=== PATIENT | female | born 1960 | race African-American/Black ===

== ENCOUNTER 2016-10-07 00:47 | Emergency (ER) | payer BC ==
[2016-10-07] MEDS ORDERED: Sodium Chloride 0.9% 1,000 ML ONE (01:18)
[2016-10-07 01:33] LABS: #Basophils 0.1 thou/uL (0.0-0.2); #Eosinphils 0.1 thou/uL (0.0-0.7); #Lymphocytes 2.8 thou/uL (1.20-3.40); #Monocytes 0.4 thou/uL (0.11-0.59); #Neutrophils 3.5 thou/uL (1.40-6.50); %Basophils 1.4 % (0.0-1.0); %Lymphocytes 40.4 % (21.0-51.0); %Monocytes 5.4 % (0.0-10.0); Mean Platelet Volume 9.3 fL (7.4-10.4); Microcytosis MODERATE=15-30 cells (100X) (0-5/hpf); Ovalocytes SLIGHT = 2-5 cells (100X) (0-1/hpf); Red Blood Cell (RBC) Count 4.69 mill/uL (4.20-5.40); Target Cells SLIGHT = 2-5 cells (100X) (0-1/hpf); Tear Drops SLIGHT = 2-5 cells (100X) (0-1/hpf); White Blood Cell (WBC) Count 6.9 thou/uL (4.8-10.8)
[2016-10-07 01:39] LABS: ALT (SGPT) 11 U/L (0-55); AST (SGOT) 18 U/L (5-34); Alkaline Phosphatase 69 U/L (40-150); Anion Gap 17 mmol/L (10-20); BUN (Urea Nitrogen) 10 mg/dL (9.8-20.1); Bilirubin, Total 0.3 mg/dL (0.2-1.2); CK (CPK) 207 U/L (29-168); Calc. Creatinine Clearance 0 mL/min (70-130); Carbon Dioxide 22 mmol/L (22-29); Chloride 96 mmol/L (98-107); Estimated GFR-MDRD 78; Globulin 3.5 g/dL (2.4-3.5); Lipase 24 U/L (8-78); Protein, Total 7.7 g/dL (6.0-8.3)
[2016-10-07 01:42] LABS: Acetaminophen Less than 3.0 mcg/mL (10.0-30.0); Salicylate Less than 5.0 mg/dL (15.0-30.0)
[2016-10-07 01:45] LABS: Troponin I Less than 0.010 ng/mL (< 0.028)
[2016-10-07] MEDS ORDERED: Potassium Chloride 20 MEQ TAB ONE (01:59)
[2016-10-07 02:24] LABS: Bilirubin Negative (Negative); Blood, Urine Trace (Negative); Glucose, Urine (Dipstick) Negative (Negative); Ketone, Urine Negative (Negative); Nitrite Negative (Negative); Protein, Urine (Dipstick) Negative (Neg-Trace); Urobilinogen 0.2 mg/dL (0.2-1.0)
[2016-10-07 02:26] LABS: Bacteria/HPF None Seen HPF (None Seen); WBC/HPF None Seen HPF (0-3)
[2016-10-07 02:35] LABS: Methadone Not Detected (NotDetected); Methamphetamine Not Detected (NotDetected)
--- NOTE | 2016-10-07 08:21 | CT ---
PRELIMINARY REPORT/[facility]/EMERGENCY AFTER HOURS PROCEDURE: EXAM: CT Head Without Intravenous Contrast. CLINICAL HISTORY: 56 years old, female; Injury or trauma; Fall; Initial encounter; Concussion / head injury;Consciousn ess not specified; Additional info: AMS, fall this evening TECHNIQUE: Axial computed tomography images of the head/brain without intravenous contrast. Coronal and sagittal reformatted images were created and reviewed. COMPARISON: No relevant prior studies available. FINDINGS: Brain: Unremarkable. No hemorrhage. No significant white matter disease. No edema. Ventricles: Unremarkable. No ventriculomegaly. Bones/joints: Unremarkable. No acute fracture. Soft tissues: Unremarkable. Sinuses: Unremarkable as visualized. No acute sinusitis. Mastoid air cells: Unremarkable as visualized. No mastoid effusion. IMPRESSION: Normal head/brain CT. Thank you for allowing us to participate in the care of your patient. Dictated and Authenticated by: Ricco Richter MD 10/07/2016 2:01 AM Central Time ([place] \T\ [place]) FINAL REPORT NONCONTRAST CT OF THE HEAD: INDICATION: Fall with head pain. COMPARISON: Prior exam dated 02/28/12. FINDINGS: Agree with the preliminary report provided. IMPRESSION: No acute intracranial abnormality. POS: [facility]
--- NOTE | 2016-10-07 08:22 | CT ---
PRELIMINARY REPORT/[facility]/EMERGENCY AFTER HOURS PROCEDURE: EXAM: CT Cervical Spine Without Intravenous Contrast. CLINICAL HISTORY: 56 years old, female; Injury or trauma; Fall; Initial encounter; Sprain or strain, cervical ligament s; Additional info: AMS, fall this evening, family states patient having difficulty walking and talk ing, patients states she fell on the floor TECHNIQUE: Axial computed tomography images of the cervical spine without intravenous contrast. Coronal and sagittal reformatted images were created and reviewed. COMPARISON: No relevant prior studies available. FINDINGS: Vertebrae: Unremarkable. No acute fracture. Discs/spinal canal/neural foramina: No acute findings. No spinal canal stenosis. Soft tissues: Unremarkable. Lung apices: Unremarkable as visualized. IMPRESSION: Normal cervical spine CT. Thank you for allowing us to participate in the care of your patient. Dictated and Authenticated by: Ricco Richter MD 10/07/2016 2:03 AM Central Time ([place] \T\ [place]) FINAL REPORT NONCONTRAST CT OF THE CERVICAL SPINE: INDICATION: Fall with neck pain. IMPRESSION: Agree with the preliminary report provided. No acute fracture or subluxation demonstrated. POS: [facility]
== END 2016-10-07 02:49 | disposition home or self-care (01) ==
LOC: NAV ERS 00:47
DX: F10.129 Alcohol abuse with intoxication, unspecified (principal); L03.116 Cellulitis of left lower limb; D64.9 Anemia, unspecified; E87.6 Hypokalemia; E11.9 Type 2 diabetes mellitus without complications; I10 Essential (primary) hypertension
CPT/HCPCS: 36416; 70450; 72125; 80053; 80306; 80307; 81003; 81015; 82553; 83690; 84484; 85025; 93005; 96360; 36415-59; J7050

== ENCOUNTER 2017-11-13 15:11 | Emergency (ER) | payer OTHER | END 2017-11-13 16:16 | disposition home or self-care (01) | LOC: NAV ERS 15:11 | DX: M54.5 Low back pain (principal); E11.9 Type 2 diabetes mellitus without complications; I10 Essential (primary) hypertension; Z79.899 Other long term (current) drug therapy | CPT/HCPCS: 99283 ==

== ENCOUNTER 2018-12-01 07:32 | Emergency (ER) | payer OTHER ==
[2018-12-01] MEDS ORDERED: Sodium Chloride 0.9% 1,000 ML ONE (07:56)
[2018-12-01] MEDS ORDERED: Ondansetron PF 4 MG/2 ML Vial ONE (07:56)
[2018-12-01 08:15] LABS: #Lymphocytes 0.4 thou/uL (1.20-3.40); #Monocytes 0.2 thou/uL (0.11-0.59); #Neutrophils 7.5 thou/uL (1.40-6.50); %Basophils 0.3 % (0.0-1.0); %Lymphocytes 5.2 % (21.0-51.0); %Monocytes 2.5 % (0.0-10.0); Hemoglobin 14.1 g/dL (12.0-16.0); Mean Corpuscular HGB CONC 30.1 g/dL (32.0-36.0); Mean Corpuscular Hemoglobin 23.1 pg (27.0-31.0); Mean Corpuscular Volume 76.6 fL (78.0-98.0); Mean Platelet Volume 8.4 fL (7.4-10.4); Platelet Count 227 thou/uL (130-400); RBC Distribution Width 13.3 % (11.5-14.5); Red Blood Cell (RBC) Count 6.11 mill/uL (4.20-5.40); White Blood Cell (WBC) Count 8.1 thou/uL (4.8-10.8)
[2018-12-01 08:24] LABS: ALT (SGPT) 15 U/L (8-55); AST (SGOT) 20 U/L (5-34); Albumin 4.6 g/dL (3.5-5.0); Alkaline Phosphatase 76 U/L (40-150); Anion Gap 19 mmol/L (10-20); BUN (Urea Nitrogen) 20 mg/dL (9.8-20.1); Bilirubin, Total 0.7 mg/dL (0.2-1.2); Calc. Creatinine Clearance 0 mL/min (70-130); Calcium 9.9 mg/dL (7.8-10.44); Carbon Dioxide 29 mmol/L (22-29); Chloride 97 mmol/L (98-107); Estimated GFR-MDRD 75; Globulin 3.2 g/dL (2.4-3.5); Glucose 176 mg/dL (70-105); Lipase 13 U/L (8-78); Potassium 3.1 mmol/L (3.5-5.1); Protein, Total 7.8 g/dL (6.0-8.3); Sodium 142 mmol/L (136-145)
[2018-12-01] MEDS ORDERED: Iopamidol 300 61% 100 ML VIAL FS ONE (09:00)
--- NOTE | 2018-12-01 09:47 | CT ---
EXAM: Abdomen and pelvic CT scan with contrast: HISTORY: Upper mid abdominal cramping pain COMPARISON: 07/26/2014 FINDINGS: Small stable left lower lobe subpleural circumscribed pulmonary nodule. Liver: Multiple benign cavernous hemangiomas. Gallbladder:Unremarkable. Pancreas:Unremarkable Spleen:Unremarkable. Adrenal glands:Unremarkable. Kidneys:No renal calculus or acute obstruction.No solid or cystic mass. No evidence for bowel obstruction. No CT evidence for acute appendicitis. The urinary bladder is unremarkable. Minimal free fluid in the pelvis. Stable borderline size uterus. No adenopathy or abscess. IMPRESSION:
[2018-12-01] MEDS ORDERED: Potassium Chloride 20 MEQ TAB ONE (10:18)
[2018-12-01 10:36] LABS: Bilirubin Negative (Negative); Blood, Urine Small (Negative); Clarity Clear (Clear); Glucose, Urine (Dipstick) Negative (Negative); Leukocyte Negative (Negative); Nitrite Negative (Negative); Protein, Urine (Dipstick) Trace mg/dL (Neg-Trace); pH, Urine 8.5 (5.0-9.0)
[2018-12-01 10:52] LABS: RBC/HPF 0-3 HPF (0-3)
[2018-12-01 10:53] LABS: Bacteria/HPF Rare-Few HPF (None Seen); Other Microscopic Description NO; Squamous Epithelial 0-3 HPF (0-3); WBC/HPF None Seen HPF (0-3)
== END 2018-12-01 10:42 | disposition home or self-care (01) ==
LOC: NAV ERS 07:32
DX: R10.11 Right upper quadrant pain (principal); R11.2 Nausea with vomiting, unspecified; E87.6 Hypokalemia; E11.9 Type 2 diabetes mellitus without complications; K21.9 Gastro-esophageal reflux disease without esophagitis; I10 Essential (primary) hypertension; Z79.899 Other long term (current) drug therapy; Z79.82 Long term (current) use of aspirin
CPT/HCPCS: 74177; 80053; 81003; 81015; 83690; 85025; 93005; 94760; 96361; 96374; J2405; J7050; Q9967

== ENCOUNTER 2021-08-10 13:50 | Emergency (ER) | payer BC, OTHER ==
[2021-08-11 08:35] LABS: SARS-CoV-2 PCR by NAA DETECTED (NotDetected)
== END 2021-08-10 15:04 | disposition home or self-care (01) ==
LOC: NAV ERS 13:50
DX: U07.1 COVID-19 (principal); E11.9 Type 2 diabetes mellitus without complications; K21.9 Gastro-esophageal reflux disease without esophagitis; I10 Essential (primary) hypertension
CPT/HCPCS: 71045; U0003; U0005

== ENCOUNTER 2022-04-19 08:52 | Outpatient (CLI) | payer BC | END 2022-04-19 08:53 | disposition home or self-care (01) | LOC: NAV RAD 08:52 | PROVIDERS: ATTEND Nurse Practitioner Family | DX: M79.645 Pain in left finger(s) (principal); M19.042 Primary osteoarthritis, left hand ==

== ENCOUNTER 2024-04-04 11:06 | Emergency (ER) | payer MEDICARE, OTHER ==
[2024-04-05 21:39] LABS: SARS-CoV-2 N1 Negative; SARS-CoV-2 N2 Negative; SARS-CoV-2 RNAse P1 Positive; SARS-CoV-2 RNAse P2 Positive
== END 2024-04-04 12:00 | disposition home or self-care (01) ==
LOC: NAV ERS 11:06
DX: J20.9 Acute bronchitis, unspecified (principal); I10 Essential (primary) hypertension; E11.9 Type 2 diabetes mellitus without complications; Z79.899 Other long term (current) drug therapy
CPT/HCPCS: 71045; 87635